=== PATIENT | male | born 1995 | race Caucasian/White ===

== ENCOUNTER 2024-09-27 17:41 | Emergency (ER) | payer OTHER, SELFPAY ==
--- NOTE | ~2024-09-27 | XR_ITS ---
XR chest 2V Ordering provider: Pancho Kumar MD History: 29 years Male with . chest pain . Comparison: None. FINDINGS: MEDIASTINUM: The cardiac silhouette is not enlarged. LUNGS: No infiltrates, effusions or pneumothorax. OTHER: No free air under the diaphragm. IMPRESSION: No acute cardiopulmonary pathology. Reviewed, dictated and finalized at location A.
[2024-09-27 17:42] VITALS: BP 151/81; PULSE 109; RESP 16; TEMP 36.3; O2SAT 95
--- NOTE | 2024-09-27 17:46 | ECG_ITS ---
Test Date: 2024-09-27 17:49:26 Measurements Intervals [place] Rate: 109 P: 65 NH: 150 QRS: 62 QRSD: 93 T: 40 QT: 329 QTc: 444 Interpretive Statements SINUS TACHYCARDIA POSSIBLE LEFT ATRIAL ENLARGEMENT MINIMAL Q WAVES- INF/LAT LEADS BORDERLINE ST-T WAVE ABNORMALITY- INFERIOR LEADS BASELINE ARTIFACT- I, II, III, V1, AVL, AVF ABNORMAL ECG No previous ECG available for comparison Electronically Signed On 09-27-2024 20:33:56 CDT by Angel Zhang D.O.
[2024-09-27 18:00] LABS: Basophils Absolute Auto 0.1 K/mm3 (0.0-0.1); Basophils Percent Auto 0.5 % (0.2-1.2); Eosinophils Percent Auto 0.2 % (0-4.4); Hematocrit 47.2 % (42.0-52.0); Hemoglobin 15.5 g/dL (14.0-18.0); Immature Granulocyte Absolute 0.04 K/mm3 (0.00-0.031); Immature Granulocyte Percent A 0.3 % (0-0.5); Lymphocytes Absolute Auto 2.06 K/mm3 (0.9-3.2); Lymphocytes Percent Auto 16.6 % (18.3-44.2); Mean Corpuscular HGB Conc 32.8 g/dl (32-36); Mean Corpuscular Hemoglobin 28.9 pg (26-34); Mean Corpuscular Volume 87.9 fl (80-100); Mean Platelet Volume 9.6 fl (7.4-10.4); Monocytes Absolute Auto 0.8 K/mm3 (0.1-0.6); Monocytes Percent Auto 6.6 % (2.6-8.5); Neutrophils Absolute Auto 9.4 K/mm3 (1.3-6.7); Neutrophils Percent Auto 75.8 % (45.5-73.1); Platelet Count Result 296 k/mm3 (150-375); Red Blood Count 5.37 M/mm3 (4.6-6.20); Red Cell Distribution Width 12.6 % (11.5-14.5); White Blood Count 12.4 K/mm3 (4.5-10.0)
[2024-09-27 18:10] LABS: Alanine Aminotransferase 51 U/L (6-50); Albumin Level 5.3 g/dL (3.5-5.1); Alkaline Phosphatase 113 U/L (38-126); Anion Gap 19 mmol/L (4-12); Aspartate Amino Transferase 32 U/L (17-59); Bilirubin,Total 0.5 mg/dL (0.2-1.3); Blood Urea Nitrogen 11 mg/dL (9-20); Calcium 9.7 mg/dL (8.4-10.2); Carbon Dioxide 16 mmol/L (22-30); Chloride 103 mmol/L (98-107); Estimated CRCL calculation 127 ml/min; Estimated Glomerular Filt Rate > 60; Glucose 124 mg/dL (65-110); Lipase 70 U/L (23-300); Potassium 3.5 mmol/L (3.4-5.0); Sodium 138 mmol/L (137-145)
[2024-09-27 18:11] LABS: Prothrombin Time 13.2 Seconds (11.1-14.7)
[2024-09-27 18:13] LABS: Partial Thromboplastin Time 25.3 Seconds (22.3-36.8)
[2024-09-27 18:21] LABS: Troponin I < 0.012 ng/mL (0.000-0.034)
[2024-09-27 19:19] VITALS: BP 148/82; PULSE 98; RESP 15; O2SAT 100
--- OUTSIDE RECORDS SUMMARY | 2024-09-27 19:22 | XMS_ITS | Clinical Summary ---
Author Organization [address] Address [address] [place] [id number] Care Team Providers Care Board Runner Name Role Phone No, Physician Primary Care Provider [phone] Allergies No known active allergies Medications fluticasone (FLONASE) 50 mcg/actuation nasal sprayIndications:Ac jennifer nasopharyngitis Administer 2 sprays into each nostril daily. 16 g 06/11/20 17 Active Additional Information Patient not taking.Reported on 09/08/2024 naproxen (NAPROSYN) 500 mg tabletIndications:P ain Take 1 tablet (500 mg total) by mouth 2 (two) times a day as needed for pain Take with food. 30 tablet 12/29/19 20 Active Additional Information Patient not taking.Reported on 09/08/2024 Active Problems No known active problems Encounters Date Type Department Care Team Description 09/13/2024 8:58 PM CDT - 09/13/2024 9:47 PM CDT Emergency [facility] Emergency Department [address] [place] [address] Yazan Michelle MD Anxiety (Primary Dx) Discharge Disposition: Discharge to home or self care 09/10/2024 Telephone [facility] [place] [address] [facility] [address] [place] [address] Kristal Physician 09/08/2024 5:43 AM CDT - 09/08/2024 7:15 AM CDT Emergency [facility] Emergency Department 1 [place] [address] Modesto Macario MD Rash (Primary Dx) Discharge Disposition: Discharge to home or self care from Last 3 Months Surgical History Surgery Date Site/Laterality Comments KNEE SURGERY Medical History Medical History Date Comments Hx Other Medical Acl reconstruct ion Social History Tobacco Use Types Packs/Day Years Used Date Smoking Tobacco: Every Day Cigarettes Smokeless Tobacco: Never Alcohol Use Standard Drinks/Week Comments No 0 (1 standard drink = 0.6 oz pur e alcohol) Personal Safety Answer Date Recorded Have you ever been in or are you currently in a harmful physical or emotional relationship or is someone making you feel afraid or unsafe? Denies 09/13/2024 Sex and Gender Information Value Date Recorded Sex Assigned at Not on file Legal Sex Male 11:29 PM M[employer]ER [employer] Gender Identity Not on file Sexual Orientation Not on file Obstetrics History Last Filed Vital Signs Vital Sign Reading Time Taken Comments Blood Pressure 134/78 09/13/2024 9:30 PM CDT Pulse 78 09/13/2024 9:30 PM CDT Temperature 37 C (98.6 F) 09/13/2024 8:34 PM CDT Respiratory Rate 18 09/13/2024 9:30 PM CDT Oxygen Saturation 94% 09/13/2024 9:30 PM CDT Inhaled Oxygen Concentration - - Weight 108.9 kg (240 lb) 09/13/2024 8:34 PM CDT Height 182.9 cm (6') 09/13/2024 8:34 PM CDT Body Mass Index 32.55 09/13/2024 8:34 PM CDT Plan of Treatment Health Maintenance Due Date Last Done Comments Depression Screening 1993 Hepatitis C Screening 1993 Varicella Vaccines (2 of 2 - 2-dose childhood series) 04/08/1998 01/14/1998 Regular Well Visit/Exam 18-64 09/19/2011 Pneumococcal vaccine <65 (1 of 2 - PCV) 2012 DTaP/Tdap/Td Vaccine (7 - Td or Tdap) 01/22/2018 01/23/2008, 01/14/1998, 01/12/1995, Additional history exists Influenza Vaccine (Season Ended) 2025 Hepatitis B Screening Completed 05/25/1994 , 1993, 1993 HPV Vaccines Aged Out No longer eligi ble based on patient's age to complete this topic Procedures Procedure Name Priority Date/Time Associated Diagnosis Comments EGFR STAT 09/13/2024 8:55 PM CDT DIFFERENTIAL AUTO STAT 09/13/2024 8:5 5 PM CDT TROPONIN T HIGH-SENSITIVITY SERIES (BASELINE, 2HR, 4HR, 6HR) STAT 09/13/2024 8:55 PM CDT COMPREHENSIVE METABOLIC PANEL STAT 09/13/2024 8:55 PM CDT CBC WITH AUTO DIFFERENTIAL STAT 09/13/2024 8:55 PM CDT ECG 12-LEAD STAT 09/13/2024 8:43 PM CDT from Last 3 Months Results * Troponin T high-sensitivity series (baseline, 2hr, 4hr, 6hr) (09/13/2024 8:55 PM CDT) Pathologist [facility] Trop T hs <6 <=22 ng/L Comment: Interpretive Data For further hscTnT resources including the diagnostic algorithm and an aid in interpretation, copy and paste this link: https://nrl.testcatalog.org/show/hsTrop Current Interpretive Data last revised 2020. Blood 09/13/2024 8:55 PM CDT 09/13/2024 9:00 PM CDT us Yazan Michelle MD LAB BLOOD ORDERABLES Final Res ult [facility] [place]) [address] [facility] [place] [address] * eGFR (09/13/2024 8:55 PM CDT) [facility] eGFR >90 >=60 mL/min/1. 73 m2 Comment: Interpretive Data Reference Interval Normal >/= 90 mL/min/1.73m2 Mildly decreased* 60 - 89 mL/min/1.73m2 Mildly to moderately decreased 45 - 59 mL/min/1.73m2 Moderately to severely decreased 30 - 44 mL/min/1.73m2 Severely decreased 15 - 29 mL/min/1.73m2 Kidney Failure < 15 mL/min/1.73m2 *Relative to young adult level Estimated glomerular filtration rate is determined by the 2020 CKD-EPI equation recommended by the National Kidney Foundation (A Unifying Approach to GFR Estimation: Recommendations of the NKF-ASK Task Force on Reassessing the Inclusion of Race in Diagnosing Kidney Disease, JASN 2020). The CKD-EPI equation should not be used for patients with unstable renal function and has not been validated in children and those over 70. Current interpretive data was last reviewed 2021. Blood 09/13/2024 8:55 PM CDT 09/13/2024 9:00 PM CDT us Harshal Alonso MD LAB BLOOD ORDERABLES Final Re sult [facility] [address] [facility] [place] [address] * Differential, auto (09/13/2024 8:55 PM CDT) Neutrophil abs 5.38 1.50 - 6.50 K/cumm Imm gran abs 0.03 0.00 - 0.10 K/cumm [facility] ([place]) Lymphocyte abs 2.43 0.80 - 3.30 K/cumm [facility] ([place]) Monocyte abs 0.62 0.20 - 0.80 K/cumm [facility] ([place]) Eosinophil abs 0.22 0.00 - 0.50 K/cumm [facility] ([place]) Basophil abs 0.08 0.00 - 0.10 K/cumm [facility] ([place]) Neutrophil pct 61.5 % [facility] ([place]) Comment: Interpretive Data Percent cell count reference ranges are not reported, since discordance with absolute values may lead to misinterpretation of CBC data. Current Interpretive Data was last revised on 2017. Imm gran pct 0.3 % [facility] ([place]) Comment: Interpretive Data Percent cell count reference ranges are not reported, since discordance with absolute values may lead to misinterpretation of CBC data. Current Interpretive Data was last revised on 2017. Lymphocyte pct 27.7 % [facility] ([place]) Comment: Interpretive Data Percent cell count reference ranges are not reported, since discordance with absolute values may lead to misinterpretation of CBC data. Current Interpretive Data was last revised on 2017. Monocyte pct 7.1 % [facility] ([place]) Comment: Interpretive Data Percent cell count reference ranges are not reported, since discordance with absolute values may lead to misinterpretation of CBC data. Current Interpretive Data was last revised on 2017. Eosinophil pct 2.5 % [facility] ([place]) Comment: Interpretive Data Percent cell count reference ranges are not reported, since discordance with absolute values may lead to misinterpretation of CBC data. Current Interpretive Data was last revised on 2017. Basophil pct 0.9 % [facility] ([place]) Comment: Interpretive Data Percent cell count reference ranges are not reported, since discordance with absolute values may lead to misinterpretation of CBC data. Current Interpretive Data was last revised on 2017. Blood 09/13/2024 8:55 PM CDT 09/13/2024 9:00 PM CDT us Yazan Michelle MD LAB BLOOD ORDERABLES Final Res ult [facility] ([place]) [address] [facility] Department [place] [address] * CBC with auto differential (09/13/2024 8:55 PM CDT) WBC 8.76 3.80 - 9.90 K/cumm Hgb 16.4 13.0 - 17.5 g/dL [facility] ([place]) Hct 48.9 38.9 - 50.3 % [facility] ([place]) Plt 289 150 - 400 K/cumm [facility] ([place]) MPV 9.5 9.1 - 12.3 fL [facility] ([place]) RBC 5.59 4.30 - 5.80 M/cumm [facility] ([place]) MCV 87.5 81.3 - 96.4 fL [facility] MCH 29.3 27.1 - 33.3 pg [facility] MCHC 33.5 32.3 - 35.7 g/dL [facility] RDW CV 12.3 11.1 - 14.9 % [facility] RDW SD 39.2 35.7 - 48.1 fL [facility] ([place]) NRBC abs 0.00 0.00 - 0.01 K/cumm [facility] ([place]) Blood 09/13/2024 8:55 PM CDT 09/13/2024 9:00 PM CDT us Yazan Michelle MD LAB BLOOD ORDERABLES Final Res ult [facility] ([place]) [address] [facility] Department [place] [address] * (ABNORMAL) Comprehensive metabolic panel (09/13/2024 8:55 PM CDT) Sodium 139 135 - 145 mmol/L Potassium, pl 3.7 3.3 - 4.9 mmol/L [facility] ([place]) Chloride 97 97 - 110 mmol/L [facility] CO2 25 22 - 32 mmol/L [facility]) Anion gap 17(H) 2 - 15 mmol/L [facility] ([place]) BUN 16 6 - 25 mg/dL [facility] ([place]) Creatinine 1.06 0.80 - 1.30 mg/dL [facility] Glucose 113 70 - 199 mg/dL [facility] ([place]) Comment: Interpretive Data Fasting glucose >/= 126 mg/dl is diagnostic for diabetes. Fasting is defined as no caloric intake for at least 8 hours. Fasting glucose between 100 mg/dl to 125 mg/dl is diagnostic of prediabetes. In a patient with classic symptoms of hyperglycemia or hyperglycemic crisis, a random glucose >/= 200 mg/dl is diagnostic for diabetes. In the absence of unequivocal hyperglycemia, results should be confirmed by repeat testing. The classification and Diagnosis of Diabetes Diabetes Care 202; 46: S19-S40. Current interpretive data was last revised 2022. Calcium 9.8 8.5 - 10.3 mg/dL [facility] ([place]) Bilirubin, total 0.4 0.1 - 1.2 mg/dL [facility] ([place]) Protein, pl 7.8 6.5 - 8.5 g/dL [facility] ([place]) Albumin 4.9 3.5 - 5.0 g/dL [facility] ([place]) Alk phos 120 40 - 130 Units/L [facility] ([place]) ALT 67(H) 7 - 55 Units/L [facility] ([place]) AST 57(H) 10 - 50 Units/L [facility] ([place]) Comment: Hemolysis present. Results may be affected. Slightly Hemolyzed Specimen Blood 09/13/2024 8:55 PM CDT 09/13/2024 9:00 PM CDT Yazan Michelle MD LAB BLOOD ORDERABLES Final Res ult Performing Organization Address City/[facility] Co de Phone Number [facility] ([place] [address] [facility] [place] [address] * ECG 12 lead (09/13/2024 8:43 PM CDT) 09/13/2024 8:43 PM CDT Narrative [facility] - 09/14/2024 8:10 AM CDT Vent Rate: 98 bpm RR Interval: 611 msec [place] Interval: 141 msec QRS Duration: 88 msec QT Interval: 337 msec QTC Interval: 392 msec P-R-T [place]: 67 - 75 - 64 degrees IMPRESSION: SINUS RHYTHM MINIMAL ST DEPRESSION [0.025+ mV ST DEPRESSION] ABNORMAL ECG Electronically Signed By: Samuel Pham MD Yazan Michelle MD ECG ORDERABLES Final Result Performing Organization Address City/[facility]/ZIP Co de Phone Number [facility] from Last 3 Months Insurance [facility] [employer] Member Subscriber Plan / Payer (Ef fective 2023-Present) Name:Rick Ryan Lakeshia Relation to Subscriber:Self Name:Rick Ryan Lakeshia Payer ID:[id number] (NAIC) Type:[facility] HMO/PPO Address: [address] [employer] [place] Care Teams Board Runner Relationship Specialty Start Date End Date No, Physician PCP - General 06/20/20
--- OUTSIDE RECORDS SUMMARY | 2024-09-27 19:22 | XMS_ITS | Referral Summary ---
Author Organization [address] Address [address] [place] [phone] Care Team Providers Care Potato Pancake Frier Name Role Phone No, Physician Primary Care Provider [phone] Encounters Date Type Department Care Team Description 09/13/2024 8:58 PM CDT - 09/13/2024 9:47 PM CDT Emergency [facility] Emergency Department 1 [place] [address] Yazan Michelle MD Anxiety (Primary Dx) Discharge Disposition: Discharge to home or self care 09/10/2024 Telephone [facility] [place] [address] [facility] [address] [place] [address] No, Physician 09/08/2024 5:43 AM CDT - 09/08/2024 7:15 AM CDT Emergency [facility] Emergency Department 1 [place] [address] Modesto Macario MD Rash (Primary Dx) Discharge Disposition: Discharge to home or self care from Last 3 Months Allergies No known active allergies Medications fluticasone (FLONASE) 50 mcg/actuation nasal sprayIndications:Ac little shell tribe nasopharyngitis Administer 2 sprays into each nostril [...] 09/08/2024 Active Problems No known active problems Social History Tobacco Use Types Packs/Day Years [...] on file Legal 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 Blood 09/13/2024 8:55 PM CDT 09/13/2024 9:00 PM CDT us Yazan Michelle MD LAB BLOOD ORDERABLES Final Res ult [facility] [place]) [address] [facility] Department [place] [address] * eGFR (09/13/2024 8:55 PM CDT) Pathologist [facility] eGFR >90 >=60 mL/min/1. 73 m2 Comment: [...] of Race in Diagnosing Kidney Disease, JASN 202). The CKD-EPI equation should not be used for patients with unstable renal function and has not been validated in children and those over 70. Current interpretive data was last reviewed 2021. Blood 09/13/2024 8:55 PM CDT 09/13/2024 9:00 PM CDT us Harshal Faiz Wala MD LAB BLOOD ORDERABLES Final Re sult [facility] ([place]) [address] [facility] Department [place] [address] * Differential, auto (09/13/2024 8:55 PM CDT) Neutrophil abs 5.38 1.50 - 6.50 K/cumm Imm gran abs 0.03 0.00 - 0.10 K/cumm [facility] ([place]) Lymphocyte abs 2.43 0.80 - 3.30 K/cumm [facility] ([place]) Monocyte abs 0.62 0.20 - 0.80 K/cumm [facility] ([place]) Eosinophil abs 0.22 0.00 - 0.50 K/cumm [facility] ([place]) Basophil abs 0.08 0.00 - 0.10 K/cumm [facility] ([place]) Neutrophil pct 61.5 % [facility] ([place]) Comment: Interpretive Data Percent cell count reference ranges are not reported, since discordance with absolute values may lead to misinterpretation of CBC data. Current Interpretive Data was last revised on 2017. Imm gran pct 0.3 % [facility] ([place]) Comment: Interpretive Data Percent cell count reference ranges are not reported, since discordance with absolute values may lead to misinterpretation of CBC data. Current Interpretive Data was last revised on 2017. Lymphocyte pct 27.7 % [facility] ([place]) Comment: Interpretive Data Percent cell count reference ranges are not reported, since discordance with absolute values may lead to misinterpretation of CBC data. Current Interpretive Data was last revised on 2017. Monocyte pct 7.1 % [facility] ([place]) Comment: Interpretive Data Percent cell count reference ranges are not reported, since discordance with absolute values may lead to misinterpretation of CBC data. Current Interpretive Data was last revised on 2017. Eosinophil pct 2.5 % [facility] ([place]) Comment: Interpretive Data Percent cell count reference [...] ORDERABLES Final Res ult Performing Organization Address City/State/[facility] Co de Phone Number [facility] ([place]) [address] [facility] Department [place] [address] * CBC with auto differential (09/13/2024 8:55 [...] ([place]) MCV 87.5 81.3 - 96.4 fL [facility] ([place]) MCH 29.3 27.1 - 33.3 pg [facility] ([place]) MCHC 33.5 32.3 - 35.7 g/dL [facility] ([place]) RDW CV 12.3 11.1 - 14.9 % [facility] ([place]) RDW SD 39.2 35.7 - 48.1 fL [facility] ([place]) NRBC abs 0.00 0.00 - 0.01 K/cumm [facility] ([place]) Blood 09/13/2024 8:55 PM CDT 09/13/2024 9:00 PM CDT Yazan Michelle MD LAB BLOOD ORDERABLES Final Res ult [facility] ([place]) [address] [facility] Department [place] [address] * (ABNORMAL) Comprehensive metabolic panel (09/13/2024 8:55 PM CDT) Sodium 139 135 - 145 mmol/L Potassium, pl 3.7 3.3 - 4.9 mmol/L [facility] ([place]) Chloride 97 97 - 110 mmol/L [facility] ([place]) CO2 25 22 - 32 mmol/L [facility] ([place]) Anion gap 17(H) 2 - 15 mmol/L [facility] ([place]) BUN 16 6 - 25 mg/dL [facility] ([place]) Creatinine 1.06 0.80 - 1.30 mg/dL [facility] ([place]) Glucose 113 70 - 199 mg/dL [facility] ([place]) Comment: Interpretive Data Fasting glucose [...] ORDERABLES Final Res ult Performing Organization Address City/[facility]/ZIP Co de Phone Number [facility] ([place]) [address] [facility] Department [place] [address] * ECG 12 lead (09/13/2024 8:43 PM CDT) 09/13/2024 8:43 PM CDT Narrative [facility] - 09/14/2024 8:10 AM CDT Vent Rate: 98 bpm RR Interval: 611 msec [place] Interval: 141 msec QRS Duration: 88 msec QT Interval: 337 msec QTC Interval: 392 msec P-R-T [place]: 67 - 75 - 64 degrees IMPRESSION: SINUS RHYTHM MINIMAL ST DEPRESSION [0.025+ mV ST DEPRESSION] ABNORMAL ECG Electronically Signed By: Samuel Pham MD Yazan Michelle MD ECG ORDERABLES Final Result Performing Organization Address [facility] Co de Phone Number [facility] [employer] [facility] from Last 3 Months Insurance [facility] HE[facility] PLAN [facility] [employer] [place] Care Teams Potato Pancake Frier Relationship Specialty Start Date End Date No, Physician PCP - General 06/20/20
--- OUTSIDE RECORDS SUMMARY | 2024-09-27 19:23 | XMS_ITS | Patient Health Record ---
Author Organization [facility] Address [address] [place], [place] [id number] Reason For Referral No Information Plan Of Treatment No Information
--- OUTSIDE RECORDS SUMMARY | 2024-09-27 19:23 | XMS_ITS ---
Author Organization [facility] Address [address] [place], [place] [id number] Care Team Providers Care Pharmacy Consultant Name Role Phone MARISA, RADHA Unavailable [phone] Medications Medication SIG (Take, Route, Frequency, Duration) Notes Start Date End Date Status Amoxicillin-Pot Clavulanate 500-125 MG 1 tablet Orally every 12 hrs for 10 days 04/17/2023 04/27/2023 Active Encounters Encounter Location Date Provider Diagnosis [facility] [address] [facility] [address] [place], [place] [id number] 04/17/2023 RADHA SNMARLAK Plan Of Treatment Medication Medication Name Sig Start Date Stop Date Notes Amoxicillin-Pot Clavulanate 500-125 MG 1 tablet Orally every 12 hrs for 10 days 04/17/2023 04/27/2023 Progress Notes * Rick RYANDOB: 4 (27 yo M)Acc No.[id number]:04/17/2023 Patient: Rick MYLES :1995 A ge:27 Y S ex:Male Address:[address] [place] [address] * Refills Start Amoxicillin-Pot Clavulanate Tablet, 500-125 MG, Orally, 20 Tablet, 1 tablet, every 12 hrs, 10 days, Refills=0 * true * Date: Generated for Smith murrell/Dung/eTyessysmitting on: 0 09/27/2024 07:22 PM CDT
--- OUTSIDE RECORDS SUMMARY | 2024-09-27 19:23 | XMS_ITS | Encounter Summary ---
Author Organization [facility] Address [address] [facility] [place] [address] Phone Care Team Providers Care Project Controls Specialist Name Role Phone Provider, None Primary Care Provider Unavailabl e Reason for Visit * Reason Onset Date Comments COVID-19 01/12/2020 Encounter Details Date Type Department Care Team ([facility] Contact Info) Description 01/12/2020 Telephone [facility] Digital Contact Center [address] [place] [address] Provider, None [place] COVID-19 Social History Tobacco Use Types Packs/Day Years Used Date Smoking Tobacco: Light Smoker Smokeless Tobacco: Never Sex and Gender Information Value Date Recorded Sex Assigned at Not on file Legal Sex Male 11:43 PM CDT Gender Identity Not on file Sexual Orientation Not on file COVID-19 Exposure Response Date Recorded In the last month, have you been in contact with someone who was confirmed or suspected to have Coronavirus / COVID-19? No / Unsure 01/08/2020 12:29 PM CDT documented as of this encounter Miscellaneous Notes * Telephone Encounter - Bree Aranda APN, VALERIA - 01/12/2020 1:51 PM CDT Patient notified of results. * Telephone Encounter - Angie Staples LPN - 01/12/2020 1:33 PM CDT Rick is calling for the results of his covid testing that was done Please call him back at [phone] documented in this encounter Plan of Treatment Not on file documented as of this encounter Visit Diagnoses Not on filedocumented in this encounter Care Teams Project Controls Specialist Relationship Specialty Start Date End Date Provider, None [place] PCP - General 05/13/18 documented as of this encounter
--- OUTSIDE RECORDS SUMMARY | 2024-09-27 19:23 | XMS_ITS | Clinical Summary ---
Author Organization [facility] Address [address] [place] [phone] Phone Care Team Providers Care Refinery Operator Gas Plant Name Role Phone Provider, None Primary Care Provider Unavailabl e Allergies No known active allergies Medications methylPREDNISol one (MEDROL) 4 MG Tablet Therapy PackIndications :Uvulitis Use as per instructions on package. 21 Tab 8 Active albuterol 108 (90 Base) MCG/ACT Aerosol SolutionIndicat ions:Cough,Whee zing,History of asthma take 1-2 Puffs by inhalation every 4 hours as needed for Wheezing or Cough. 1 Inhaler 0 Active Active Problems No known active problems Social History Tobacco Use Types Packs/Day Years Used Date Smoking Tobacco: Light Smoker Smokeless Tobacco: Never Sex and Gender Information Value Date Recorded Sex Assigned at Not on file Legal Sex Male 11:43 PM CDT Gender Identity Not on file Sexual Orientation Not on file Last Filed Vital Signs Vital Sign Reading Time Taken Comments Blood Pressure 105/70 05/13/2018 11:23 AM SHRIMP POND LABORER Pulse 65 05/13/2018 11:23 AM SHRIMP POND LABORER Temperature 36.9 C (98.5 F) 05/13/2018 11:23 AM SHRIMP POND LABORER Respiratory Rate - - Oxygen Saturation 98% 05/13/2018 11:23 AM SHRIMP POND LABORER Inhaled Oxygen Concentration - - Weight 93 kg (205 lb 1.6 oz) 05/13/2018 11:23 AM SHRIMP POND LABORER Height 182.9 cm (6') 05/13/2018 11:23 AM SHRIMP POND LABORER Body Mass Index 27.82 05/13/2018 11:23 AM SHRIMP POND LABORER Plan of Treatment Health Maintenance Due Date Last Done Comments Hepatitis C Virus (HCV) Screening 1995 Influenza Immunization (#1) 2024 SARS-COV-2 Immunization ( season) 2024 06/22/2021 Respiratory Syncytial Virus (RSV) Immunization (Adult) (1 - 1-dose 75+ series) 2068 Hepatitis B Immunization Completed 994, 1993, 1993 DTaP/Tdap/Td Immunization Discontinued 2007, 01/14/1998, 01/12/1995, Additional history exists TdaP Immunization Completed 01/23/2008 Meningococcal Immunization (ACWY) Aged Out No longer eligible based on patient's age to complete this topic Pneumococcal Immunization Combined Aged Out No longer eligible based on patient's age to complete this topic Rotavirus Immunization Aged Out No lo nger eligible based on patient's age to complete this topic Care Teams Refinery Operator [employer] Plant Relationship Specialty Start Date End Date Provider, None [place] PCP - General 05/13/18
[2024-09-27 19:47] VITALS: BP 138/80; PULSE 101; RESP 12; O2SAT 100
--- NOTE | 2024-09-27 19:47 | ED_ITS ---
HPI - Chest Pain General Chief Complaint: Chest Pain Stated Complaint: chest pain, left arm numb Time Seen by Provider: 09/27/24 19:12 History of Present Illness HPI narrative: Patient is a 29-year-old male who presents the emergency department this evening complaining of chest pain, epigastric pain and left arm numbness. Patient states that he has had these symptoms in the past a few weeks ago and [facility] and at that time he had a full workup and they informed him that his symptoms are from anxiety. Patient states the symptoms started again earlier in the day today but since then have resolved. Admits that he did stay out late yesterday a drinking alcohol with friends. Denies any recent illness, any fevers or chills. Denies any shortness of breath. No additional symptoms or concerns at this time. Related Data Allergies Allergy/AdvReac Type Severity Reaction Status Date / Time No Known Allergies Allergy Verified 09/27/24 19:56 Review of Systems 2 Review of Systems: All systems are reviewed and are negative unless stated otherwise in the HPI. Exam 2 Narrative: General: Alert, awake, afebrile, in no acute distress. HEENT: PERRL, no rhinorrhea, no post nasal drip, oropharynx clear. Neck: Trachea midline, no JVD, no lymphadenopathy. Cardiovascular: Regular rate and rhythm, no murmurs, rubs or gallops, no peripheral edema. Respiratory: Clear to auscultation bilaterally, no tachypnea, no wheezing, no rhonchi, no rubs, no respiratory distress. Abdomen: Soft, nontender, nondistended, no rebound, no guarding, no peritoneal signs. Musculoskeletal: No joint swelling or deformity, normal muscle tone. Skin: No rashes or petechia, no signs of infection. Psychiatric: Alert and oriented, normal behavior and judgment for situation. Neurological: Alert and oriented to person, place, and time. Follows all commands. No focal deficits, speech is clear and fluent. Course Vital Signs Vital signs: Vital Signs Temperature 97.4 F L 09/27/24 17:42 Pulse Rate 109 H 09/27/24 17:42 Respiratory Rate 16 09/27/24 17:42 Blood Pressure 151/81 H 09/27/24 17:42 Pulse Oximetry 95 09/27/24 17:42 Oxygen Delivery Room Air 09/27/24 17:42 Temperature 97.4 F L 04/18/25 17:42 Pulse Rate 98 09/27/24 19:19 Respiratory Rate 15 09/27/24 19:19 Blood Pressure 148/82 H 09/27/24 19:19 Pulse Oximetry 100 09/27/24 19:19 Oxygen Delivery Room Air 09/27/24 19:22 MDM - Chest Pain MDM Narrative Medical decision making narrative: The patient was evaluated by myself in the emergency department. History is obtained from patient who is an independent historian and physical exam was performed. External medical records were reviewed at this time. IV was established and pertinent tests were ordered. Patient was administered 1 L IV fluid bolus with normal saline. EKG was obtained which revealed sinus tachycardia rate of 109 beats per minute. No ST changes, T wave inversions or evidence of acute ischemia. EKG was independently interpreted by me and is currently pending official cardiology read. Laboratory results obtained revealing no acute process. Troponin negative. Imaging studies obtained included CXR which was independently interpreted by me revealing no acute cardiopulmonary process, which is pending final radiology interpretation. Differential diagnosis considerations include acute stress reaction, anxiety, peptic ulcer disease, pancreatitis, biliary colic, infectious process such as pneumonia, acute viral syndrome. Comorbidities impacting this visit include tobacco and alcohol use. I have evaluated and discussed social determinants of health with the patient that could potentially impact subsequent diagnosis and treatment plans. On repeat assessment of the patient, reevaluation revealed that the patient is doing well and is in no acute distress. Patient symptoms have improved since he arrived to our emergency department. Repeat vital signs were all reviewed and noted to be stable. Differential diagnosis and treatment plan were discussed with the patient at bedside. Patient agrees with discussion and after shared medical decision making agrees with [admission/discharge]. All questions were answered to the patient's satisfaction. Patient will follow up with his PCP in 3-5 days. Patient was provided with strict return precautions and instructed to return to the emergency department if any new or worsening symptoms develop. The patient was discharged in stable condition. Lab Data 09/27/24 17:54 09/27/24 17:54 Labs: Lab Results 09/27/24 Range/Units 17:54 WBC 12.4 H (4.5-10.0) K/mm3 RBC 5.37 (4.6-6.20) M/mm3 Hgb 15.5 (14.0-18.0) g/dL Hct 47.2 (42.0-52.0) % MCV 87.9 (80-100) fl MCH 28.9 (26-34) pg MCHC 32.8 (32-36) g/dl RDW 12.6 (11.5-14.5) % Plt Count 296 (150-375) k/mm3 MPV 9.6 (7.4-10.4) fl Immature Gran % (Auto) 0.3 (0-0.5) % Neut % (Auto) 75.8 H (45.5-73.1) % Lymph % (Auto) 16.6 L (18.3-44.2) % Republic % (Auto) 6.6 (2.6-8.5) % Eos % (Auto) 0.2 (0-4.4) % Baso % (Auto) 0.5 (0.2-1.2) % Lymph # (Auto) 2.06 (0.9-3.2) K/mm3 Republic # (Auto) 0.8 H (0.1-0.6) K/mm3 Eos # (Auto) 0.0 (0-0.3) K/mm3 Baso # (Auto) 0.1 (0.0-0.1) K/mm3 Abs Immat Gran (auto) 0.04 H (0.00-0.031) K/mm3 Absolute Neuts (auto) 9.4 H (1.3-6.7) K/mm3 Absolute Nucleated RBC 0.000 (0.0-0.012) K/mm3 Nucleated RBC % 0.0 (0.0-0.2) % PT 13.2 (11.1-14.7) Seconds INR 1.0 APTT 25.3 (22.3-36.8) Seconds Sodium 138 (137-145) mmol/L Potassium 3.5 (3.4-5.0) mmol/L Chloride 103 (98-107) mmol/L Carbon Dioxide 16 L (22-30) mmol/L Anion Gap 19 H (4-12) mmol/L BUN 11 (9-20) mg/dL Creatinine 0.93 (0.7-1.3) mg/dL Estim Creat Clear Calc 127 ml/min Estimated GFR > 60 (59 - ) Glucose 124 H (65-110) mg/dL Calcium 9.7 (8.4-10.2) mg/dL Total Bilirubin 0.5 (0.2-1.3) mg/dL AST 32 (17-59) U/L ALT 51 H (6-50) U/L Alkaline Phosphatase 113 (38-126) U/L Troponin I < 0.012 (0.000-0.034) ng/mL Total Protein 8.0 (6.3-8.2) g/dL Albumin 5.3 H (3.5-5.1) g/dL Lipase 70 (23-300) U/L Discharge Plan Discharge Clinical Impression: Chest pain, Acute epigastric pain Patient Disposition: Home Condition: Improved Instructions: Chest Pain (ED), Abdominal Pain (ED) Additional Instructions: Please follow-up with the GI doctor and blending kettle tender to a provided with today within the next 3-5 days for additional workup regarding your chest pain and epigastric pain. You were instructed to decrease her alcohol and tobacco intake is these could be contributing to your symptoms. Return to the emergency department if any new or worsening symptoms develop. Patient Language: [place] Irish Follow-up/Referrals: Mikaela Casper, EVELIA [Advanced Practice Nurse] - 3 Days Angel Zhang DO [Physician] - 3 Days UNKNOWN,DOCTOR [Primary Care Provider] - Time of Disposition: 19:49
[2024-09-27 20:01] VITALS: BP 124/80; PULSE 95; RESP 15; O2SAT 96
[2024-09-27] MEDS: SODIUM CHLORIDE 0.9% IV 1,000 ML 999 ML IV CONT (20:04)
== END 2024-09-27 21:24 | disposition home or self-care (01) ==
PROVIDERS: Emergency Medicine; Emergency Provider Emergency Medicine
DX: R10.13 Epigastric pain (principal); R07.9 Chest pain, unspecified; R00.0 Tachycardia, unspecified; R94.31 Abnormal electrocardiogram [ECG] [EKG]
CPT/HCPCS: 36415; 71046; 80053; 83690; 84484; 85025; 85610; 85730; 93005; 96360; 99284; J7030